=== PATIENT | male | born 1970 | race Hispanic/Latino ===

== ENCOUNTER 2023-11-09 12:20 | Observation (INO) | payer MEDICARE, OTHER ==
[~2023-11-09] VITALS: Ht 167.6 cm; Wt 77.1 kg
[2023-11-09 13:10] VITALS: BP 146/85
[2023-11-09] MEDS ORDERED: OXYCODONE HCL 5 MG TAB PO PRN (13:15)
[2023-11-09] MEDS ORDERED: LACTATED RINGER'S 1,000 ML IV SCH ×2 (13:15→14:00)
--- NOTE | 2023-11-09 13:15 | NUR ---
PT ARRIVED TO MS ROOM 121. WITH A KNEE SCOOTER AND WALKING BOOT IN PLACE. PT ABLE TO GET DRESSED IND INTO GOWN W/O DIFFICULTY. PT A/O X4. DENIES PAIN AT THIS TIME. WALKING BOOT REMAINS IN PLACE ICE APPLIED, PER ORDER. DENIES NUMBNESS AND TINGLING. ORIENTED TO CALL LIGHT. WATER GIVEN. DENIES NEEDS
[2023-11-09] MEDS ORDERED: CARBAMAZEPINE200 MG PO (13:18)
[2023-11-09 13:24] LABS: BASOPHILS 0.4 % (0-2); EOSINOPHILS 3.5 % (0-6); HEMATOCRIT 44.8 % (35.0-50.0); HEMOGLOBIN 15.2 g/dL (12.0-18.0); LYMPHOCYTES 22.3 % (24-44); MCH 30.4 (27-36); MCHC 33.8 g/dl (30-36); MONOCYTES 7.3 % (0-12); NEUTROPHILS 66.5 % (39-80); PLATELET COUNT 281 K/uL (140-440); RBC 4.98 M/ul (4.3-5.7); RDW 12.9 (10.5-15.0)
[2023-11-09 13:38] LABS: ALBUMIN 3.9 g/dL (3.4-5.0); ALBUMIN/GLOBULIN RATIO 0.93 (1.1-2.4); ANION GAP 11.1 (7-21); BILIRUBIN, TOTAL 0.5 ng/dL (0.2-1.0); BUN/CREATININE RATIO 13.09 (6.0-28.6); CALCIUM 9.2 mg/dL (8.5-10.1); CREATININE, SERUM 0.84 mg/dL (0.70-1.30); POTASSIUM 4.1 mmol/L (3.5-5.1); PROTEIN, TOTAL 8.1 g/dL (6.4-8.2)
--- NOTE | 2023-11-09 13:41 | NUR ---
PT NOT AVAILABLE FOR VISIT. PROVIDED PRAYER.
[2023-11-09] MEDS ORDERED: CARBAMAZEPINE200 M1 PO (13:42)
[2023-11-09] MEDS ORDERED: carBAMazepine 200 MG TAB PO SCH (14:00)
--- NOTE | 2023-11-09 15:03 | NUR ---
PATIENT IN BED AT THIS TIME. SPACE CONTROL SUPERVISOR PROVIDED PATIENT WITH A PUDDING CUP, A JELLO CUP, AND AN ICE PACK FOR LEG. CALL LIGHT WITHIN REACH, NO FURTHER NEEDS AT THIS TIME.
--- NOTE | 2023-11-09 16:17 | NUR ---
MED REC COMPLETE
--- NOTE | 2023-11-09 16:32 | NUR ---
PATIENT IN BED AT THIS TIME. SOFTWARE ENGINEERING ASSOCIATE MANAGER PROVIDED PATIENT WITH JOY AND ICE. CALL LIGHT WITHIN REACH, NO FURTHER NEEDS AT THIS TIME.
[2023-11-09 17:51] VITALS: BP 150/82
--- NOTE | 2023-11-09 18:17 | NUR ---
PATIENT IN BED AT THIS TIME. VITALS AND I&O'S CHARTED. CALL LIGHT WITHIN REACH, NO FURTHER NEEDS AT THIS TIME.
--- NOTE | 2023-11-09 19:10 | NUR ---
PATIENT IN BED AT THIS TIME. RN OSTOMY AND RN WENT IN TO PUT SEIZURE PADS ON BOTH RAILS OF BED. CALL LIGHT WITHIN REACH, NO FURTHER NEEDS AT THIS TIME.
--- NOTE | 2023-11-09 19:35 | NUR ---
SHIFT REPORT RECEIVED FROM DAYSHIFT PETE PARRY AT BEDSIDE. pt AWAKE AND RESTING IN BED, UNNA BOOT AND FRACTURE BOOT TO RLE. IV SITE WNL, IV FLUIDS INFUSING WNL. pt DENIES NEEDS OR CONCERNS, FAMILY IN ROOM. BOARD UPDATED AND CALL LIGHT AND PERSONAL BELONGINGS IN REACH.
[2023-11-09 21:06] VITALS: BP 139/86
--- NOTE | 2023-11-09 21:10 | NUR ---
FIXTURE FABRICATOR REPAIRER OBTAINED VITALS AND INTAKE. NO NEW OUTPUT NOTED. PT GIVNE FRESH ICE WATER, A SODA, AND A WARM BLANKET UPON REQUEST. PT STATES NO FURTHER NEEDS AT THIS TIME. CALL LIGHT WITHIN REACH.
--- NOTE | 2023-11-09 21:30 | NUR ---
ROUNDED ON pt, pt AWAKE AND RESTING IN BED WATCHING TV. NO DISTRESS OR NEEDS VERBALIZED, CALL LIGHT IN REACH.
--- NOTE | 2023-11-09 21:46 | EKG ---
[facility] [address] [place] [address] Signed Normal sinus rhythm Normal ECG No previous ECGs available Confirmed by Aileen Bullard MD () on 11/09/2023 9:46:54 PM Electronically Signed By: AILEEN BULLARD MD 11/09/23 2146 PATIENT NAME: JENNY COHENDELLA Electrocardiogram DATE OF : 70 PHYSICIAN: AILEEN BULLARD MD REPORT #: [id number] REPORT IS CONFIDENTIAL AND NOT TO BE RELEASED WITHOUT AUTHORIZATION
--- NOTE | 2023-11-09 21:50 | NUR ---
ASSESSMENT COMPLETE, SCHEDULED MEDS GIVEN BY RUGBY UNION FOOTBALLERPETE CABALLERO-SEE EMAR. pt DENIES PAIN, CMS INTACT TO LLE, UNNA BOOT WITH FRACTURE BOOT IN PLACE. BOOT LEFT OPEN WITH NEW ICE PACK WRAPPED IN PILLOWCASE IN PLACE. pt ABLE TO WIGGLE TOES, SOMEWHAT WEAK PEDAL PULSE NOTED, DIFFICULT TO FULLY ASSESS D/T UNNA BOOT DRESSING. IV SITE WNL, FLUIDS CONTINUE TO INFUSE DIRECTED WNL.NO FURTHER NEEDS, CALL LIGHT IN REACH AND BED ALARM ON FOR SAFETY.
[2023-11-09 21:53] VITALS: BP 139/86
[2023-11-10] VITALS (10 sets, daily range): BP systolic 114–139; BP diastolic 70–92
--- NOTE | 2023-11-10 00:05 | NUR ---
pt NPO AT THIS TIME.
--- NOTE | 2023-11-10 00:17 | NUR ---
ROUNDED ON pt, pt RESTING QUIETLY IN BED WITH EYES CLOSED. ON RA, RR EVEN AND UNLABORED. NO DISTRESS NOTED. CALL LIGHT IN REACH.
--- NOTE | 2023-11-10 01:27 | NUR ---
CALL CENTER DIRECTOR OBTAINED VITALS AND I&O. PT STATES NO OTHER NEEDS AT THIS TIME. CALL LIGHT WITHIN REACH.
--- NOTE | 2023-11-10 01:30 | NUR ---
FOCUSED ASSESSMENT COMPLETE, NO ACUTE CHANGES. CMS REMAINS INTACT, pt ABLE TO WIGGLE TOES TO RLE, STRONG PEDAL PULSE OBTAINED. UNNA BOOT REMAINS IN PLACE ALONG WITH FRACTURE BOOT. FRACTURE ALLOWED TO BE OPENED PER MD ORDERS DAO VICKERSN ICE PACK IN PLACE. SKIN WARM TO THE TOUCH. pt DENIES PAIN, DECLINES PAIN MEDICATION. CALL LIGHT IN REACH. pt UPDATED ON POC FOR REMAINING SHIFT-QUESTIONS ANSWERED.
--- NOTE | 2023-11-10 02:58 | NUR ---
pt RESTING ON BACK, ON RA. RR EVEN AND UNLABORED. NO DISTRESS NOTED. NO ACUTE CHANGES TO RLE, REMAINS IN WALKING BOOT/UNNA BOOT-ELEVATED IN BED WITH INTERMITTENT ICE PACK. WILL CONTINUE TO MONITOR FOR CHANGES.
--- NOTE | 2023-11-10 04:31 | NUR ---
no acute changes, pt allowed to rest. on ra, rr even and unlabored. call light in reach.
--- NOTE | 2023-11-10 04:37 | NUR ---
pt HAD UNEVENTFUL NIGHT, A/OX4. CALLS APPROPRIATELY. VSS, REMAINS ON RA. IV FLUIDS INFUSING, SITE WNL. pt NWB TO RLE, SCOOTER IN ROOM. UNNA BOOT AND FRACTURE BOOT IN PLACE, FRACTURE BOOT ALLOWED TO BE OPEN WHEN ICE PACK IN PLACE, KEEP ELEVATED. pt HAS BEEN NPO SINCE MIDNIGHT, POC FOR RIGHT ANKLE ORIF. pt DECLINED PRN PAIN MEDICATIONS DURING THE SHIFT.
--- NOTE | 2023-11-10 05:06 | NUR ---
ECONOMIST RESEARCH ASSISTANT OBTAINED VITALS AND OUTPUT. ECONOMIST RESEARCH ASSISTANT INSTRUCTED PT ON HOW TO COMPLETE THE CHG WIPEDOWN. PT ASSISTED TO BATHROOM USING SCOOTER FOR LEG. PT SAT ON COMMODE AND PREFORMED CHG WIPE DOWN INDEPENDENTLY. ECONOMIST RESEARCH ASSISTANT CHANGED PT BED LINENS. PT ASSISTED BACK TO BED. PT STATES NO FURTHER NEEDS AT THIS TIME. CALL LIGHT WITHIN REACH.
--- NOTE | 2023-11-10 05:27 | NUR ---
rounded on pt, iv site wnl. fluids infusing as directed. pt recently completed pt pre-op wipedown. rle remains elevated in bed with new ice pack in place wrapped in pillowcase. no further needs, call light in reach.
--- NOTE | 2023-11-10 06:30 | NUR ---
OR CREW TO TAKE pt OFF MS FLOOR AND TAKE TO OR. MIRROR MACHINE FEEDER ANCEF GIVEN TO MECHANICAL STRIPERPETE FUNES.
[2023-11-10] MEDS ORDERED: MIDAZOLAM HCL 2 MG/2 ML VIAL ONE (06:33)
[2023-11-10] MEDS ORDERED: dexmedeTOMIDine HCl 200 MCG/2 ML VIAL ONE (06:33)
[2023-11-10] MEDS ORDERED: DEXAMETHASONE SOD PHOS 4 MG/ML VIAL ONE ×2 (06:33→07:06)
[2023-11-10] MEDS ORDERED: LIDOCAINE HCL 2% 5 ML SDV ONE (06:34)
[2023-11-10] MEDS ORDERED: propofoL 200 MG/20 ML VIAL ONE (06:34)
[2023-11-10] MEDS ORDERED: Ropivacaine HCl 0.5% 30 ML VIAL ONE (06:34)
[2023-11-10] MEDS ORDERED: SODIUM CHLORIDE 0.9% 20 ML IV ONE (06:34)
[2023-11-10] MEDS ORDERED: CEFAZOLIN SODIUM 2 GM/20 ML SYR IV SCH (07:00)
[2023-11-10] MEDS ORDERED: TRANEXAMIC ACID 2,000 MG in SODIUM CHLORIDE 0.9% 100 ML IV SCH (07:00)
[2023-11-10] MEDS ORDERED: ondansetron HCL 4 MG/2 ML VIAL ONE (07:06)
--- NOTE | 2023-11-10 07:34 | NUR ---
RECIEVED SHIFT REPORT. PT IS IN SURGERY.
[2023-11-10] MEDS ORDERED: KETOROLAC TROMETHAMINE 30 MG/ML VIAL IV PRN (08:00)
[2023-11-10] MEDS ORDERED: fentaNYL citrate 50 MCG/ML SDV IV PRN (08:00)
[2023-11-10] MEDS ORDERED: IBLOOD GLUCOSE TEST STRIP 1 EA TEST VI PRN (08:00)
[2023-11-10] MEDS ORDERED: ondansetron HCL 4 MG/2 ML VIAL IV PRN (08:00)
[2023-11-10] MEDS ORDERED: NALOXONE HCL 0.4 MG SYR IV PRN (08:00)
[2023-11-10] MEDS ORDERED: HYDROCODON-ACE1 EA11 PO (08:25)
--- NOTE | 2023-11-10 09:12 | NUR ---
11/10/23 0912 Britta,Kimberly 0830 PT ARRIVED TO PACU ON RA, PT REACTIVE TO TACTILE STIMULI. PERIODS OF APNEA NOTED WHEN ASLEEP, RN WAKES PT OFF AND ON AND ENCOURAGING DEEP BREATHING. 0844 O2 SAT DECREASED TO LOW TO MID 80S, O2 INCREASED TO HIGH 90S AND PT DENIES PAIN AND NAUSEA. PT REPORTS TOES ARE NUMB AND EDUCATION GIVEN. PT EASILY FALLS BACK TO SLEEP WITH SMALL AMOUNT OF SNORING. 0900 PLAN OF CARE DISCUSSED AND PT WAKES EAISLY TO VERBAL STIMULI. 09 PT RESTING WITH NO CONCERNS, ON 2L NC. RESP EVEN AND UNLABORED.
--- NOTE | 2023-11-10 09:30 | NUR ---
PT ARRIVED TO MS ROOM 121 FROM PACU. PT IS ALERT/ORIENTED X3. ON 2L NC DUE TO DESATING IN 80S IN PACU WHEN FALLING ASLEEP. CPOX PLACED. SPO2 98% 2LNC. TITRATED TO 1L. REPORTS TINGLINING, BUT IS ABLE TO MOVE TOES, AND 2+ PEDAL PULSE. ICE IN PLACE. ELEVATED ON A PILLOW. DRESSING CDI. CALL LIGHT IN REACH. DAD AT BEDSIDE.
--- NOTE | 2023-11-10 09:40 | NUR ---
PT ABLE TO STAND TO BEDSIDE TO URINATE. 2PA FOR PT SAFETY. PT ALSO ABLE TO TAKE PO MEDICATIONS WITH WATER W/O DIFFICULTY. DENIES NAUSEA OR PAIN.
--- NOTE | 2023-11-10 10:20 | NUR ---
POST OP ASSESSMENT COMPLETE. NO CHANGES SINCE PRIOR ASSESSMENT. PT REQUESTING TO TRY JELLO. TITRATED TO RA, PT MAINTAINING OXYGEN ABOUT 95%.
--- NOTE | 2023-11-10 11:50 | NUR ---
IN TO OBTAIN POST-OP VITALS. VITALS COMPLETE. URINAL EMPTIED. PT SITTING UP IN BED EATING LUNCH. PT DENIES ANY OTHER NEEDS AT THIS TIME. CALL LIGHT IN REACH. SEIZURE PADS IN PLACE.
--- NOTE | 2023-11-10 12:36 | OR ---
[facility] [address] [place], [place] [address] Signed DATE OF OPERATION: 11/10/2023 SURGEON: Elba Mayen MD PREOPERATIVE DIAGNOSIS: Trimalleolar ankle fracture, displaced, right. POSTOPERATIVE DIAGNOSIS: Trimalleolar ankle fracture, displaced, right. PROCEDURE PERFORMED: Open reduction and internal fixation, right bimalleolar ankle fracture. DUKEY RIDER: Rosy Temple PA-C. Rosy was present and critical for all portions of the procedure. ANESTHESIA: General. TOURNIQUET TIME: 72 minutes. IMPLANTS: Ynes 03/15 tubular plates x2 with screws. BRIEF HISTORY: Della is a 53-year-old gentleman with a history of TBI. He has seizures and memory loss. He presented to Dr. Knox with complaint of ankle pain. Stated he had fallen through the deck floor about three days prior. Radiographs showed a displaced trimalleolar ankle fracture. He was referred to us. Because of his memory loss and difficulty finding our office, we did admit him to the hospital overnight for pain control for surgery this morning. Risks, benefits, and alternatives were discussed with the patient and he elected to proceed. PROCEDURE IN DETAIL: Once consent was obtained, he was taken to the operating room. After adequate anesthesia, he was placed on the operating room table with the hip bump. Leg was placed in a well-padded proximal thigh tourniquet. The leg was prepped and draped in a standard sterile fashion. The leg was exsanguinated using Esmarch bandage. Tourniquet Electronically Signed By: ELBA MAYEN MD 11/10/23 1236 PATIENT NAME: DELLA MCKINNEY OPERATIVE REPORT DATE OF : 70 REPORT #: [id number] PHYSICIAN: ELBA MAYEN MD PCP: UNASSIGNED DOCTOR REPORT IS CONFIDENTIAL AND NOT TO BE RELEASED WITHOUT AUTHORIZATION [facility] [address] [place], [place] [address] Signed inflated to 250 mmHg. Lateral side was approached first. A longitudinal incision was made and carried through the skin and subcutaneous tissue. It was immediately apparent that this was an old injury. There was no subcutaneous blood, hematoma and there was a fair amount of relatively advanced scar tissue. The fracture still was in a nonunion state however. The fracture was reduced and held with a bony tenaculum. The five hole 1/3rd tubular plate was then fashioned to fit the lateral malleolus and three 3.5 screws were placed proximally, two 4.0 screws placed distally. Attention was then turned to the medial side. A longitudinal incision was made and carried through the skin and subcutaneous tissue and again dense scar tissue was encountered. This was elevated off the bone as best we could. The fracture again was mobile and nonunited. The fracture was then reduced and clamped. Once this was completed, the 1/3rd tubular plate was again fashioned to fit the medial side of the tibia just a little bit posterior to the tibial ju in the intramedullary canal. Once this was adequately bent, the center screw hole was drilled and appropriate length screw was placed. The remaining screw holes were drilled. A screw was placed in the distal malleolar tip. Relatively good bone fixation was obtained on the medial side. The lateral side was fairly soft. The screws were all tightened under image intensifier guidance. Final radiographs showed good reduction of the fractures. The posterior fracture was small enough and not need to be addressed. The wounds were then cleansed with normal saline, closed with 3-0 Monocryl in layers and brennan for the skin. Both wounds were dressed with Allevyn dressing and an Ronald wrap. He was placed in a fracture boot, taken to the recovery room in satisfactory condition. All sponge, needle, and instrument counts were correct. Elba Mayen MD BA/MODL /[id number] Copies: ~ Electronically Signed By: ELBA MAYEN MD 11/10/23 1236 PATIENT NAME: DELLA MCKINNEY OPERATIVE REPORT DATE OF : 70 REPORT #: [id number] PHYSICIAN: ELBA MAYEN MD PCP: UNASSIGNED DOCTOR REPORT IS CONFIDENTIAL AND NOT TO BE RELEASED WITHOUT AUTHORIZATION
[2023-11-10] MEDS ORDERED: CELECOXIB 200 MG CAP PO SCH (17:00)
== END 2023-11-10 14:21 | disposition home or self-care (01) ==
LOC: MS 12:20
PROVIDERS: Physician Assistant; ADMIT Specialist; ATTEND Specialist
PROC: 0QSG04Z Reposition Right Tibia with Internal Fixation Device, Open Approach (ICD-10-PCS; 2023-11-10)
PROC: 0QSJ04Z Reposition Right Fibula with Internal Fixation Device, Open Approach (ICD-10-PCS; principal; 2023-11-10 07:00)
DX: S82.851A Displaced trimalleolar fracture of right lower leg, initial encounter for closed fracture (principal); W19.XXXA Unspecified fall, initial encounter
CPT/HCPCS: 01480; 36415; 64447; 73600; 76942; 80053; 85025; 93005; 93010; C1713; J0690; J1100; J2001; J2250; J2405; J2704; J2795; J7121

== ENCOUNTER 2024-05-29 13:59 | Emergency (ER) | payer MEDICARE, OTHER ==
[~2024-05-29] VITALS: Ht 167.6 cm; Wt 82.0 kg
[~2024-05-29 13:59] MED LIST: CARBAMAZEPINE200 M1 PO; CARBAMAZEPINE200 MG PO; HYDROCODON-ACE1 EA11 PO
[2024-05-29 15:20] VITALS: BP 117/68
== END 2024-05-29 15:22 | disposition home or self-care (01) ==
LOC: ED 13:59
DX: Z48.02 Encounter for removal of sutures (principal)
CPT/HCPCS: 73610; 99282